=== PATIENT | male | born 1940 | race Caucasian/White ===

== ENCOUNTER 2017-06-05 13:21 | Emergency (ER) | payer MEDICARE, BC ==
--- NOTE | ~2017-06-05 | ER ---
PATIENT'S NAME: CHARO GARCIA [facility] AGE: 76 Y [address] ROOM: [place] [address] LOCATION: [facility] ADMIT DATE: 06/05/2017 ER/Outpatient Report DISCHARGE DATE: FAMILY PHYSICIAN: Sohail Jo MD ATTENDING PHYSICIAN: Jose Gregory Time of Arrival: 1325 hours. Time of Evaluation: 1335 hours. CHIEF COMPLAINT: Swallowed trach prosthetic valve. HISTORY OF PRESENT ILLNESS: The patient is a 76-year-old male who presents to the emergency department today with a chief complaint of swallowing his trach valve. He reports it occurred a few hours ago. The patient has undergone a tracheoesophageal puncture due to esophageal cancer. He was attempting to clean it when he swallowed it. He denies any fevers or chills. No nausea or vomiting. No diarrhea or constipation. No chest pain. No shortness of breath. The patient was initially seen and evaluated at [place], [place] and was transferred here for a higher level of care. PAST MEDICAL HISTORY: Esophageal cancer, hypertension. PAST SURGICAL HISTORY: Tonsils and adenoids, tracheoesophageal puncture, and hernia. SOCIAL HISTORY: The patient denies any tobacco, alcohol, or illicit drug use. ALLERGIES: NO KNOWN DRUG ALLERGIES. MEDICATIONS: Please see list. PRIMARY CARE DOCTOR: Sohail Jo MD. REVIEW OF SYSTEMS: All systems are reviewed by myself and are negative with the exception of those discussed in the HPI and past medical history. PHYSICAL EXAMINATION: PATIENT'S NAME: CHARO GARCIA [facility] AGE: 76 Y [address] ROOM: [place] [address] LOCATION: [facility] ADMIT DATE: 06/05/2017 ER/Outpatient Report DISCHARGE DATE: FAMILY PHYSICIAN: Sohail Jo MD ATTENDING PHYSICIAN: Jose Gregory VITAL SIGNS: Weight 95 kg. Blood pressure 213/141, pulse 96, respiratory rate 20, temperature 96.4, and oxygen saturation 98% on room air. GENERAL: The patient is a 76-year-old male, appears stated age, in no acute distress. HEENT: Head: Normocephalic, atraumatic. Pupils are equal, round, and reactive to light. NECK: Supple. Trach is in place. Stoma is open. There is a puncture that does appear open as well. CARDIOVASCULAR: Regular rate and rhythm. No murmurs, rubs, or gallops. LUNGS: Clear to auscultation bilaterally. No wheezes, rales, or rhonchi. ABDOMEN: Soft, nontender, and nondistended. No rebound, rigidity, or guarding. MUSCULOSKELETAL: The patient moves all 4 extremities. SKIN: Warm and dry. LABORATORY DATA AND X-RAYS: Two-view chest x-ray and two-view abdominal series were obtained, does appear to be a foreign body in the abdomen. There is no evidence of foreign body in the chest. IMPRESSION: 1. Tracheoesophageal puncture, prosthetic swallowed foreign body, with placement of a Iyer catheter. 2. Initial visit. EMERGENCY DEPARTMENT COURSE: The patient was brought back to the examination room. Seen and evaluated by myself. X-rays are obtained as described above. I have discussed the case with Dr. Benitez with Ear, Nose, and Throat. He has recommended placement of a 12-[place] Red Iyer catheter into the hole puncture. He has recommended call him to office tomorrow to set up the prosthesis. A 12-[place] Red Iyre catheter is placed without difficulty through the catheter. I have discussed following up with Ear, Nose, and Throat tomorrow. I have discussed return to care instructions including worsening symptoms or other concerns to return to the emergency department as soon as possible. The patient is agreeable without further questions time at this time. DISPOSITION: The patient discharged home in good condition. JOSE GREGORY DO PATIENT'S NAME: CHARO GARCIA [facility] AGE: 76 Y [address] ROOM: [place] [address] LOCATION: ED ADMIT DATE: 06/05/2017 ER/Outpatient Report DISCHARGE DATE: FAMILY PHYSICIAN: Sohail Jo MD ATTENDING PHYSICIAN: Jose Gregory/uday /[id number] Attending Addendum: The patient left the room and while in the waiting room he coughed and the catheter did fall out. We have reinserted the catheter without issues. We have taped the catheter down and recommended holding the tube if he needs to clear his throat of secretions or cough. The patient will follow up with Dr. Benitez tomorrow in the clinic to get setup with the appropriate devices. Jose Gregory DO d: 06/05/17 1825 t: 06/06/17 1001, OUTPATIENT REPORT
== END 2017-06-05 16:00 | disposition disaster alternative care site (69) ==
LOC: GMED 13:21
DX: T18.2XXA Foreign body in stomach, initial encounter (principal); I10 Essential (primary) hypertension; C15.9 Malignant neoplasm of esophagus, unspecified; Z90.89 Acquired absence of other organs; Z79.899 Other long term (current) drug therapy